=== PATIENT | male | born 1985 | race Caucasian/White ===

== ENCOUNTER 2024-10-03 13:33 | Emergency (ER) | payer OTHER, SELFPAY ==
[2024-10-03 13:54] VITALS: BP 153/85; PULSE 59; RESP 18; TEMP 36.3; O2SAT 99; BMI 27.8
--- NOTE | 2024-10-03 15:05 | ED_ITS ---
HPI - Headache <Marysol Peña PA-C - Last Filed: 10/03/24 16:28> General Chief Complaint: Headache Stated Complaint: migraine tension CHAKRABORTY since 10/01, HBP Time Seen by Provider: 10/03/24 15:04 History of Present Illness HPI Narrative: 39-year-old male presents with a headache that began on October 01. He mentions a history of migraine not formally diagnosed but does experience prodrome, this time he did experience some sparkly he is in his periphery as well as a bandlike distribution bilaterally. He also endorses history of tension headaches and he believes that he is experiencing both. He describes tension in his bilateral neck and upper shoulders. He has had no injury, he is denying any numbness or tingling or weakness, no vomiting, he is sensitive to the light, he does not wear corrective lenses he states his vision is good and he is up-to-date on his eye exams. He last took Excedrin with caffeine at 12:00 p.m. approximately 3-1/2 hours ago. Previous to that last week he did try an [id number] Advil a Tylenol he did apply some ice yesterday and some topical icy hot with no significant relief. He is denying any disruption during sleep, no other treatment tried. His caffeine history is about 1 cup of coffee in the morning and 1-2 sodas per day. He does have a history of some sinuses but he is denying any sinus pain at this point, only significant medical history is asthma which is well controlled. He works at the [employer], he works on computers and aircraft simulation, he states that he has an ergonomic setup and he is able to adjust his computer workstation and desk. He has had no recent illness, fever, neck stiffness, or recent sports injury. He denies any increased stress. All other systems are reviewed and are negative. His primary care is at the [facility]. Related Data Home Medications Medication Instructions Recorded Confirmed mometasone 100 mcg/actuation HFA 100 mcg IH BID ##0 06/17/16 aerosol inhaler (Asmanex HFA) albuterol sulfate 0.63 mg/3 mL 1 NEB PRN PRN ##0 09/12/17 solution for nebulization Previous Rx's Medication Instructions Recorded azithromycin 250 mg tablet 250 mg PO QDAY 5 days #0 tabs 09/12/17 (Zithromax) prednisone 10 mg tablet 10 mg PO SEE INSTRUCTIONS 12 days 09/12/17 #0 tabs cyclobenzaprine 10 mg tablet 10 mg PO BEDTIME PRN muscle spasm 10/03/24 #20 tabs Allergies Allergy/AdvReac Type Severity Reaction Status Date / Time No Known Drug Allergies Allergy Verified 10/03/24 15:29 Review of Systems <Marysol Peña PA-C - Last Filed: 10/03/24 16:28> Review of Systems Narrative: All other systems reviewed and are negative. Patient History <Marysol Peña PA-C - Last Filed: 10/03/24 16:28> Social History Smoking Status: Never smoker Smoking Status: Never smoker Exam <Marysol Peña PA-C - Last Filed: 10/03/24 16:28> Initial Vital Signs Initial Vital Signs: Vital Signs Temperature 97.3 F L 10/03/24 13:54 Pulse Rate 59 L 10/03/24 13:54 Respiratory Rate 18 10/03/24 13:54 Blood Pressure 153/85 H 10/03/24 13:54 Pulse Oximetry 99 10/03/24 13:54 Oxygen Delivery Method Room Air 10/03/24 13:54 Vital signs reviewed and are normal except for slightly elevated systolic. Const Other: Smiling, seated, well dressed, no obvious distress, he has in a darkened exam room, comfortable appearing. [facility] Head: normal to inspection, normocephalic and atraumatic Ears: hearing grossly normal bilaterally, external ears normal, TM's normal bilaterally, EAC's normal, mastoids normal and no periauricular adenopathy Nose: external nose normal, nares normal and nasal mucous membranes and turbinates normal Face and sinus: normal facial exam, sinuses nontender and face symmetric Mouth: oral mucosae normal, lip normal, tongue normal and oropharynx normal Teeth and gingiva: dentition normal and gingiva normal Eyes General: Yes appearance normal, both eyes and all related structures Visual Ibarra: normal visual ibarra by confrontation Alignment and Position: alignment normal Periorbital: periorbital findings normal Eyelids: eyelids normal Conjunctivae: conjunctivae normal Sclera: sclerae normal Pupils: PERRL EOM: EOM intact bilaterally and No nystagmus Neck Neck: normal visual inspection, full ROM, no meningeal signs and supple Other: Paraspinous tenderness and tightness to his cervical tissues as well as his upper trapezium bilaterally. Palpable knots and his upper and lower rhomboid on the left. Mild tenderness without guarding. Resp Effort & Inspection: normal respiratory effort Auscultation: clear to auscultation bilaterally, no rales, no rhonchi and no wheezes Cardio Rate: regular rate Rhythm: regular rhythm Back/Spine/Pelvis Cervical Spine: normal cervical lordosis, cervical ROM normal, cervical muscular tenderness and cervical spasm Thoracic/Lumbar Spine: thoracic and lumbar spine normal to inspection and thoraco-lumbar ROM normal Skin General: no rashes or lesions noted, elasticity normal and turgor normal Neuro Cranial Nerves: CN's II-XI intact bilaterally, PERRL, accommodation normal, EOM intact bilaterally and No nystagmus Extrem Other: Moves upper and lower extremities without deficits, strength is equal and intact bilaterally, sensory is also grossly intact, no focal neurologic findings. <Good Dacosta MD - Last Filed: 10/03/24 18:55> Initial Vital Signs Initial Vital Signs: Vital Signs Temperature 97.3 F L 10/03/24 13:54 Pulse Rate 59 L 10/03/24 13:54 Respiratory Rate 18 10/03/24 13:54 Blood Pressure 153/85 H 10/03/24 13:54 Pulse Oximetry 99 10/03/24 13:54 Oxygen Delivery Method Room Air 10/03/24 13:54 Course <Marysol Peña PA-C - Last Filed: 10/03/24 16:28> Course Course Narrative: Treated with Toradol 30 mg intramuscularly. Orders Ordered: Discontinued Medications Ketorolac Tromethamine (Ketorolac 30 Mg/Ml Vial) 30 mg IM NOW ONE Stop: 10/03/24 15:24 Last Admin: 10/03/24 15:34 Dose: 30 mg Documented By: MANOHAR Vital Signs Vital signs: Vital Signs - 8 hr 10/03/24 13:54 10/03/24 16:39 Temperature 97.3 F L 97.7 F Pulse Rate 59 L 55 L Respiratory Rate 18 18 Blood Pressure 153/85 H 129/71 Pulse Oximetry 99 98 Oxygen Delivery Method Room Air Room Air <Good Dacosta MD - Last Filed: 10/03/24 18:55> Orders Ordered: Discontinued Medications Ketorolac Tromethamine (Ketorolac 30 Mg/Ml Vial) 30 mg IM NOW ONE Stop: 10/03/24 15:24 Last Admin: 10/03/24 15:34 Dose: 30 mg Documented By: MANOHAR Vital Signs Vital signs: Vital Signs - 8 hr 10/03/24 13:54 10/03/24 16:39 Temperature 97.3 F L 97.7 F Pulse Rate 59 L 55 L Respiratory Rate 18 18 Blood Pressure 153/85 H 129/71 Pulse Oximetry 99 98 Oxygen Delivery Method Room Air Room Air MDM - Headache <Marysol Peña PA-C - Last Filed: 10/03/24 16:28> MDM Narrative Medical decision making narrative: Symptoms are consistent with migraine as well as tension headache, he has palpable knots, mild sensitivity to the light, but no focal neurologic deficits. He is treated with Toradol injection 30 mg and did have moderate improvement. We discussed possibly getting a physical therapy evaluation, please do follow up with the PCP as a referral is indicated. Discussed massage therapy, using ice and heat alternating on the neck and upper back, discussed some basic gentle [id number] and activation and mobilization maneuvers. No additional NSAIDs today, next dose would be tomorrow morning, he can certainly continue with the Excedrin, monitor for signs and symptoms of caffeine withdrawal and avoid that. Stay hydrated. Trial of a muscle relaxant as prescribed for bedtime, when he gets home I highly recommend that he take some diphenhydramine this will help his headache as well. Red flag warning signs reviewed in great detail to please seek medical attention if you have any worsening symptoms, any new worrisome symptoms develop any vision changes, weakness, worsening pain, do not hesitate to return to the emergency department. I recommend a headache journal though to see if there is any potential triggers. Discharge Plan Departure Patient Disposition: Home Clinical Impression: Tension headache Migraine Qualifiers: Migraine type: unspecified Status migrainosus presence: without status migrainosus Intractability: not intractable Qualified Code(s): G43.909 - Migraine, unspecified, not intractable, without status migrainosus Instructions: DI for Migraine, DI for Headache Activity Restrictions/Additional Instructions: Please consider continuing the nonsteroidal anti-inflammatory with your next dose tomorrow this would be something like ibuprofen or brand-name Advil 400-600 mg 3 times a day with food. You can continue the Excedrin in the interim. When you get home I would like you to try some diphenhydramine which is Benadryl 50 mg as this can help with migraine. It will dry you up so please do hydrate. Please do schedule a follow up with your PCP for recurrent headaches. If you have any worsening symptoms or any new worrisome symptoms do not hesitate to return to the emergency department or call 911. Keep her activity light, avoid straining, consider heating pad and or ice for some of your muscle tissues on the back you have several knots. I did prescribe a muscle relaxant that you could try at bedtime use caution as it can cause sedation. Prescriptions: New cyclobenzaprine 10 mg tablet 10 mg PO BEDTIME PRN (Reason: muscle spasm) Qty: 20 0RF No Action mometasone [Asmanex HFA] 100 MCG HFA aerosol inhaler 100 mcg IH BID Qty: 0 albuterol sulfate 0.63 MG/3 ML solution for nebulization 1 NEB PRN PRNQty: 0 prednisone 10 MG tablet 10 mg PO SEE INSTRUCTIONS 12 Days Qty: 0 0RF azithromycin [Zithromax] 250 MG tablet 250 mg PO QDAY 5 Days Qty: 0 0RF Referrals: Miscellaneous,[facility] [Primary Care Provider] - Stand Alone Forms: Patient Portal/API/Survey ED Sign-out <Good Dacosta MD - Last Filed: 10/03/24 18:55> Cosign ED Attending Esmer Attestation: I was immediately available in the department for consultation. This documentation has been reviewed and I agree with assessment and plan. Supervised by Good Dacosta MD
[2024-10-03] MEDS: KETOROLAC 30 MG/ML VIAL IM (15:34)
[2024-10-03 16:39] VITALS: BP 129/71; PULSE 55; RESP 18; TEMP 36.5; O2SAT 98
== END 2024-10-03 16:39 | disposition home or self-care (01) ==
PROVIDERS: Emergency Provider Physician Assistant Medical
DX: G44.209 Tension-type headache, unspecified, not intractable (principal); G43.909 Migraine, unspecified, not intractable, without status migrainosus
CPT/HCPCS: 96372; 99283; 99284; J1885